=== PATIENT | female | born 1980 | race Caucasian/White ===

== ENCOUNTER 2016-06-06 16:06 | Emergency (ER) | payer OTHER ==
[~2016-06-06 16:06] MED LIST: IBUPROFEN400 MG PO; LORTAB 7.5-5001 TAB PO; MAXALT MLT10 MG/TAB PO; MAXALT5 MG PO; OMEPRAZOLE40 M1 PO; PHENERGAN25 M1 DOB; [UNRECOGNIZED DRUG - REMARK]
== END 2016-06-06 16:54 | disposition home or self-care (01) ==
LOC: CFTX 16:06
DX: J06.9 Acute upper respiratory infection, unspecified (principal); R03.0 Elevated blood-pressure reading, without diagnosis of hypertension; F41.9 Anxiety disorder, unspecified; F32.9 Major depressive disorder, single episode, unspecified; K21.9 Gastro-esophageal reflux disease without esophagitis
CPT/HCPCS: 87651; 99283

== ENCOUNTER 2016-06-21 16:06 | Emergency (ER) | payer OTHER ==
--- NOTE | ~2016-06-21 | CR21 ---
[facility] A Service [facility] RADIOLOGY TEXT RESULTS PATIENT: LUCHO DICKINSON LOCATION: [facility] : 76 UNIT #: [id number] AGE: [address]: YAYO SARGENT SEX: F ORDER DR: [id number] [facility]. [place], [place] [address] [id number] MR#: [id number] Acc #: [id number] NAME: LUCHO DICKINSON : 1980 SEX: F STUDY DATE/TIME: 06/21/2016 17:31 UNIT: [facility] ROOM: STUDY DESCRIPTION: CR Ankle Min 3 Views Rt Attending Physician: Yayo Sargent A.P.R.N. Ordering Physician: Ed Doctor [id number] [facility] Primary Care Physician: Primary Care Physician No MEDICAL IMAGING REPORT This report is preliminary unless electronic signature is present EXAM Right ankle HISTORY Lateral ankle pain after twisting ankle today. COMMENT 3 views of the right ankle are reviewed. There is no previous. Small planter calcaneal spur. Lateral soft tissue swelling seen suggestive of ligamentous injury. No acute fracture or dislocation appreciated. IMPRESSION Lateral soft tissue swelling suggests ligamentous injury. Small amount of anterior soft tissue swelling noted. No acute fracture or dislocation appreciated. There is a small plantar calcaneal spur. Dictated by... Ruchi Gama M.D. THIS IS AN ELECTRONICALLY VERIFIED REPORT Ruchi Gama M.D. at 06/22/2016 1:43 PM DAMARI/emmy TD: 06/22/2016 08:25 JOB #: [id number] MEDICAL IMAGING REPORT [facility] A Service [facility] RADIOLOGY TEXT RESULTS PATIENT: LUCHO DICKINSON LOCATION: [facility] : 76 UNIT #: [id number] AGE: [address]: YAYO SARGENT SEX: F ORDER DR: Page 1 of 1 COPY
== END 2016-06-21 19:55 | disposition home or self-care (01) ==
LOC: CFTX 16:06 → CED 16:06 → CFTX 18:29
DX: S93.401A Sprain of unspecified ligament of right ankle, initial encounter (principal); X58.XXXA Exposure to other specified factors, initial encounter; Y93.89 Activity, other specified; Y92.69 Other specified industrial and construction area as the place of occurrence of the external cause; Y99.0 Civilian activity done for income or pay
CPT/HCPCS: 29515; 73610; 96372; 99283; J1885